=== PATIENT | male | born 1970 | race Caucasian/White ===

== ENCOUNTER 2017-03-11 09:11 | Emergency (ER) | payer OTHER ==
[~2017-03-11] VITALS: Ht 195.6 cm; Wt 88.5 kg
[~2017-03-11 09:11] MED LIST: ANAPROX DS550 MG; HYDROCODON-ACE1 EAC7; MEDROLDOSEPACK PO; NORFLEX100 MG PO; TRAMADOL 50 MG50 MG PO
[2017-03-11] MEDS ORDERED: NORCO 5-325 TA1 EACH PO (09:55)
[2017-03-11] MEDS ORDERED: IBUPROFEN 800800 M1 PO (09:55)
[2017-03-11] MEDS ORDERED: ZOVIRAX800 MG PO (09:55)
[2017-03-11 10:07] VITALS: BP 134/90
== END 2017-03-11 10:08 | disposition home or self-care (01) ==
LOC: M.ERS 09:11
DX: B02.9 Zoster without complications (principal); F17.210 Nicotine dependence, cigarettes, uncomplicated

== ENCOUNTER → 2017-04-19 | Outpatient (CLI) | payer OTHER ==
[~2017-04-19] MED LIST changes: +IBUPROFEN 800800 M1 PO; +NORCO 5-325 TA1 EACH PO; +ZOVIRAX800 MG PO
== END ==
LOC: M.RAD 15:06
DX: M25.551 Pain in right hip (principal)

== ENCOUNTER → 2017-05-01 | Outpatient (CLI) | payer OTHER | LOC: M.CT 13:26 | DX: I70.0 Atherosclerosis of aorta (principal); R31.29 Other microscopic hematuria ==